=== PATIENT | male | born 1970 | race Caucasian/White ===

== ENCOUNTER 2017-02-16 12:59 | Day surgery (SDC) | payer OTHER ==
[~2017-02-16] VITALS: Ht 188 cm; Wt 101.0 kg
[~2017-02-16 12:59] MED LIST: CHOL3000 PO; FEXO180T72 PO; L. A1CAP3 PO; OXYC1TAB7 PO; TAMS0.4C2 PO
[2017-02-16 13:19] VITALS: BP 131/89
[2017-02-16] MEDS ORDERED: LACTATED RINGERS 1,000 ML IV SCH (13:23)
[2017-02-16] MEDS ORDERED: DEXAMETHASONE 4 MG/ML, 5ML ONE (13:47)
[2017-02-16] MEDS ORDERED: PROPOFOL 10 MG/ML, 20ML ONE (13:47)
[2017-02-16] MEDS ORDERED: CEFAZOLIN 1,000 MG ONE (13:47)
[2017-02-16] MEDS ORDERED: ONDANSETRON 2MG/ML, 2ML ONE (13:47)
[2017-02-16] MEDS ORDERED: KETOROLAC 30 MG/1 ML ONE (13:47)
[2017-02-16] MEDS ORDERED: OMNIPAQUE 350 MG/ML, 50 ML BOTTLE IV ONE (14:38)
[2017-02-16] MEDS ORDERED: OMNIPAQUE 350 MG/ML, 50 ML BOTTLE ONE (14:56)
[2017-02-16] MEDS ORDERED: ALBUTEROL SULFATE 2.5 MG/3 ML NPPB PRN (15:00)
[2017-02-16] MEDS ORDERED: MIDAZOLAM 1 MG/ML, 2ML IV PRN (15:00)
[2017-02-16] MEDS ORDERED: EPHEDRINE 50 MG/ML, 1ML IVPush PRN (15:00)
[2017-02-16] MEDS ORDERED: ONDANSETRON 2MG/ML, 2ML IVPush PRN (15:00)
[2017-02-16] MEDS ORDERED: LABETALOL 5MG/ML, 20ML IV PRN (15:00)
[2017-02-16] MEDS ORDERED: hydrALAzine 20 MG/ML, 1ML IV PRN (15:00)
[2017-02-16] MEDS ORDERED: PROMETHAZINE 25 MG/ML, 1ML IV PRN (15:00)
[2017-02-16] MEDS ORDERED: METOPROLOL 1 MG/ML, 5ML IV PRN (15:00)
[2017-02-16] MEDS ORDERED: HYDROmorphone 1 MG/ML, 1ML IV PRN (15:00)
[2017-02-16] MEDS ORDERED: ACETAMINOPHEN 325 MG TABLET PO PRN (15:00)
[2017-02-16] MEDS ORDERED: OXYcodone 5 MG/5 ML ORAL.SOL UDC PO PRN (15:00)
[2017-02-16] MEDS ORDERED: FENTANYL PF 100 MCG/2ML IV PRN (15:00)
[2017-02-16] MEDS ORDERED: MEPERIDINE/PF 25MG/0.5ML IVPush PRN (15:00)
[2017-02-16] MEDS ORDERED: MIDAZOLAM 1 MG/ML, 2ML ONE (15:11)
[2017-02-16] MEDS ORDERED: FENTANYL PF 250 MCG/5ML ONE (15:11)
[2017-02-16] MEDS ORDERED: ACETAMINOPHEN 650 MG/20.3 ML UDC ONE (15:21)
[2017-02-16] MEDS ORDERED: PHENAZOPYRIDINE 200 MG TABLET ONE (15:21)
[2017-02-16] MEDS ORDERED: OXYcodone 5 MG/5 ML ORAL.SOL UDC ONE (15:22)
[2017-02-16] MEDS ORDERED: PHENAZOPYRIDINE 200 MG TABLET PO ONE (15:30)
== END 2017-02-16 17:00 | disposition home or self-care (01) ==
LOC: OR 12:59
PROVIDERS: ATTEND Urology
DX: N20.1 Calculus of ureter (principal); Z88.3 Allergy status to other anti-infective agents; Z82.49 Family history of ischemic heart disease and other diseases of the circulatory system; Z84.1 Family history of disorders of kidney and ureter; M19.90 Unspecified osteoarthritis, unspecified site
CPT/HCPCS: 52356; 74420; 82360; 88300; C1758; C2617; J0690; J1100; J1885; J2250; J2405; J2704; J3010; Q9967

== ENCOUNTER 2019-04-22 10:06 | Inpatient (IN) | payer OTHER ==
[~2019-04-22] VITALS: Ht 188 cm; Wt 107.7 kg
--- NOTE | 2019-04-22 10:23 | NUR ---
FIRST CONTACT WITH PT. Pt presents to ED with c/o right flank pain and states, "I think I have a kidney stone. I have had them many times, I had lithotripsy three times." Pt denies cp, sob, n/v/d, trauma, or syncope. CMS intact. Pt states, "I took 10 mg of the last I had of oxycotin. So my pain is about an 8 or 9." ED PA at bedside. NADN. Bed rail up x 1, call light within reach. Pt connected to NIBP cuff and continous pulse ox. No other needs requested at this time.
[2019-04-22] MEDS ORDERED: SODIUM CHLORIDE FLUSH 10ML SYR IVF ONE (10:30)
--- NOTE | 2019-04-22 11:00 | NUR ---
Pt transported on [facility] to [facility]. HEAD.
[2019-04-22 11:02] LABS: BASOPHILS # (AUTO) 0.01 x10^3/uL (0-0.1); BASOPHILS % (AUTO) 0 % (0-1); EOSINOPHILS % (AUTO) 3 % (1-7); LYMPHOCYTES # (AUTO) 0.76 x10^3/uL (1-3.4); LYMPHOCYTES % (AUTO) 21 % (22-44); MD NO; MEAN CORPUSCULAR HEMOGLOBIN 30.1 pg (27.5-34.5); MEAN CORPUSCULAR VOLUME 91.2 fL (81-97); MEAN PLATELET VOLUME 8.3 fL (7.4-10.4); MONOCYTES # (AUTO) 0.45 x10^3/uL (0.2-0.8); MONOCYTES % (AUTO) 12 % (2-9); NEUTROPHILS # (AUTO) 2.34 x10^3/uL (1.8-6.8); NEUTROPHILS % (AUTO) 64 % (42-75); PLATELET COUNT 186 x10^3/uL (130-400); RED BLOOD COUNT 4.56 x10^6/uL (4.38-5.82)
--- NOTE | 2019-04-22 11:05 | NUR ---
BREAK RN: pt returned from CT, upright on gurney awake & comfortable, responded approp to staff, NAD, comfort measures provided, call light within reach.
[2019-04-22 11:12] LABS: ALBUMIN 3.8 g/dL (3.4-5.0); ANION GAP 3 mmol/L (5-15); CALCIUM 8.7 mg/dL (8.5-10.1); CHLORIDE 110 mmol/L (98-107); CREATININE 1.13 mg/dL (0.7-1.3)
[2019-04-22 11:40] LABS: MICROSCOPIC AUTO
[2019-04-22 11:41] LABS: CULTURE INDICATED? NO
--- NOTE | 2019-04-22 13:32 | NUR ---
LATE NOTE ENTRY FOR 1245: Pt resting on gurney. NADN. Pt declines any comfort measures for pain. Pt states, "I am doing okay right now." Pt connected to NIBP cuff and continous pulse ox. Call light within reach. No other needs expressed at this time.
--- NOTE | 2019-04-22 13:59 | NUR ---
SBAR RPT REC'D FROM [facility] AND ASSUMED PT CARE. PT RESTING ON GURNEY AND WATCHING TV. VSS NOTED. PT DENIES PAIN AT THIS TIME AND IS AWARE OF PLAN FOR SURGERY TODAY AT 1730. PT VERBALIZES UNDERSTANDING OF NPO STATUS. CALL LIGHT W/I REACH
[2019-04-22 14:37] VITALS: BP 121/69
[2019-04-22 14:45] VITALS: BP 121/69
[2019-04-22 15:03] VITALS: BP 121/69
[2019-04-22] MEDS ORDERED: D5%-0.45% NACL 1,000 ML IV SCH (15:50)
[2019-04-22] MEDS ORDERED: ZOLPIDEM 5MG TABLET PO PRN (16:00)
[2019-04-22] MEDS ORDERED: ONDANSETRON 2MG/ML, 2ML IVPush PRN (16:00)
[2019-04-22] MEDS ORDERED: CEFTRIAXONE PMX 1GM/50ML 50 ML IV SCH (16:00)
[2019-04-22] MEDS ORDERED: hydrALAzine 20 MG/ML, 1ML IVPush PRN (16:00)
[2019-04-22] MEDS ORDERED: OXYcodone IR 5MG TABLET PO PRN (16:00)
[2019-04-22] MEDS ORDERED: ACETAMINOPHEN 325 MG TABLET PO PRN ×2 (16:00→17:00)
[2019-04-22] MEDS ORDERED: morphine SULFATE 10 MG/ML, 1ML IVPush PRN (16:00)
[2019-04-22] MEDS ORDERED: MIDAZOLAM 1 MG/ML, 2ML ONE (16:56)
[2019-04-22] MEDS ORDERED: FENTANYL PF 250 MCG/5ML ONE (16:56)
[2019-04-22] MEDS ORDERED: ONDANSETRON 2MG/ML, 2ML IV PRN (17:00)
[2019-04-22] MEDS ORDERED: hydrALAzine 20 MG/ML, 1ML IV PRN (17:00)
[2019-04-22] MEDS ORDERED: OXYcodone 5 MG/5 ML ORAL.SOL UDC PO PRN (17:00)
[2019-04-22] MEDS ORDERED: MEPERIDINE/PF 25MG/0.5ML IVPush PRN (17:00)
[2019-04-22] MEDS ORDERED: PROMETHAZINE 25 MG/ML, 1ML IV PRN (17:00)
[2019-04-22] MEDS ORDERED: FENTANYL PF 100 MCG/2ML IV PRN (17:00)
[2019-04-22] MEDS ORDERED: HYDROmorphone 2 MG/ML, 1ML IVPush PRN (17:00)
[2019-04-22] MEDS ORDERED: LABETALOL 5 MG/ML SYRINGE IV PRN (17:00)
[2019-04-22] MEDS ORDERED: ONDANSETRON 2MG/ML, 2ML ONE (17:41)
[2019-04-22] MEDS ORDERED: DEXAMETHASONE 4 MG/ML, 1ML ONE ×2 (17:50→17:56)
[2019-04-22] MEDS ORDERED: SUCCINYLCHOLINE 20 MG/ML, 10ML ONE (17:51)
[2019-04-22] MEDS ORDERED: PROPOFOL 10 MG/ML, 20ML ONE (17:51)
[2019-04-22] MEDS ORDERED: KETOROLAC 30 MG/1 ML ONE (18:35)
[2019-04-22] MEDS ORDERED: OXYcodone 5 MG/5 ML ORAL.SOL UDC ONE (19:14)
[2019-04-22 19:51] VITALS: BP 123/75
[2019-04-22] MEDS ORDERED: TAMS-11 PO (20:07)
[2019-04-22] MEDS ORDERED: PHEN100T90 PO (20:08)
[2019-04-22] MEDS ORDERED: OXYC5TAB2 PO (20:13)
[2019-04-22] MEDS ORDERED: POLY17PO5 PO (20:15)
== END 2019-04-22 22:12 | disposition home or self-care (01) | DRG 661 ==
LOC: ED 11:46 → EDIP 13:51 → 4NOR 14:25
PROVIDERS: ADMIT Hospitalist; ATTEND Hospitalist
PROC: 0T768DZ Dilation of Right Ureter with Intraluminal Device, Via Natural or Artificial Opening Endoscopic (ICD-10-PCS; 2019-04-22)
PROC: 0TC68ZZ Extirpation of Matter from Right Ureter, Via Natural or Artificial Opening Endoscopic (ICD-10-PCS; principal; 2019-04-22 17:30)
DX: N13.2 Hydronephrosis with renal and ureteral calculous obstruction (principal); M19.90 Unspecified osteoarthritis, unspecified site; Z82.49 Family history of ischemic heart disease and other diseases of the circulatory system; Z83.3 Family history of diabetes mellitus; Z88.8 Allergy status to other drugs, medicaments and biological substances
CPT/HCPCS: 36415; 74176; 80048; 81001; 82040; 82360; 85025; 88300; G0378; J0696; J1100; J1885; J2250; J2405; J2704; J3010; C1758; C1769; C2617; J0330

== ENCOUNTER 2019-12-22 12:53 | Emergency (ER) | payer OTHER ==
[~2019-12-22] VITALS: Ht 188 cm; Wt 105.1 kg
[~2019-12-22 12:53] MED LIST changes: +OXYC5TAB2 PO; +PHEN100T90 PO; +POLY17PO5 PO; +TAMS-11 PO
--- NOTE | 2019-12-22 15:11 | NUR ---
BREAK RN: PT TO ROOM FROM LOBBY
--- NOTE | 2019-12-22 15:17 | NUR ---
THIS IS A 49 YEAR OLD MALE WHO C/O OF RIGHT FLANK PAIN. PT HAS HX OF KIDNEY STONES. EXPLAINED NEED FOR URINE, PT VERBALIZED UNDERSTANDING. WATER GIVEN
--- NOTE | 2019-12-22 15:47 | NUR ---
report from elida meehan at bedside, ua sent, plan for meds. as
[2019-12-22] MEDS ORDERED: KETOROLAC 60 MG/2 ML ONE (15:49)
[2019-12-22] MEDS ORDERED: ONDANSETRON ODT 4 MG PO ONE (16:00)
[2019-12-22] MEDS ORDERED: KETOROLAC 30 MG/1 ML IM ONE (16:00)
[2019-12-22] MEDS ORDERED: ONDANSETRON ODT 4 MG ONE (16:09)
[2019-12-22 16:21] LABS: MICROSCOPIC NOT IND
[2019-12-22 16:23] LABS: CULTURE INDICATED? NO
--- NOTE | 2019-12-22 17:19 | NUR ---
ct shows kidney stones. recheck. as
[2019-12-22 17:30] VITALS: BP 112/70
== END 2019-12-22 18:46 | disposition home or self-care (01) ==
LOC: ED 18:00
DX: N20.0 Calculus of kidney (principal); R10.9 Unspecified abdominal pain
CPT/HCPCS: 74176; 81003; 96372; 99284; J1885; Q0162

== ENCOUNTER 2021-06-06 22:12 | Emergency (ER) | payer OTHER ==
[~2021-06-06] VITALS: Ht 185.4 cm; Wt 100.0 kg
[2021-06-06 22:25] VITALS: BP 142/79
[2021-06-06 23:19] LABS: BASOPHILS % (AUTO) 0 % (0-1); EOSINOPHILS % (AUTO) 1 % (1-7); LYMPHOCYTES % (AUTO) 13 % (22-44); MEAN CORPUSCULAR HEMOGLOBIN 30.5 pg (27.5-34.5); MEAN PLATELET VOLUME 8.6 fL (7.4-10.4); MONOCYTES % (AUTO) 13 % (2-9); NEUTROPHILS % (AUTO) 73 % (42-75); PLATELET COUNT 183 x10^3/uL (130-400); RED BLOOD COUNT 4.35 x10^6/uL (4.38-5.82); RED CELL DISTRIBUTION WIDTH 13.9 % (9.4-14.8)
[2021-06-06 23:31] LABS: ALBUMIN 3.4 g/dL (3.4-5.0); ANION GAP 6 mmol/L (5-15); CALCIUM 9.1 mg/dL (8.5-10.1); CHLORIDE 106 mmol/L (98-107)
[2021-06-06 23:32] LABS: CREATININE 1.54 mg/dL (0.7-1.3)
[2021-06-07 00:04] LABS: MICROSCOPIC INDICATED
[2021-06-07] MEDS ORDERED: OXYcodone/APAP 5/325MG TABLET PO ONE (01:00)
[2021-06-07] MEDS ORDERED: KETOROLAC 30 MG/1 ML IM ONE (01:00)
[2021-06-07] MEDS ORDERED: KETOROLAC 60 MG/2 ML ONE (01:43)
[2021-06-07] MEDS ORDERED: OXYcodone/APAP 5/325MG TABLET ONE (01:43)
== END 2021-06-07 03:04 | disposition home or self-care (01) ==
LOC: ED 06-07 00:50
DX: N13.2 Hydronephrosis with renal and ureteral calculous obstruction (principal)
CPT/HCPCS: 36415; 74176; 76770; 80048; 81001; 82040; 85025; 96372; 99285; J1885

== ENCOUNTER → 2021-07-05 | Outpatient (CLI) | payer OTHER | END | disposition home or self-care (01) | LOC: RAD 08:12 | PROVIDERS: ATTEND Orthopaedic Surgery | DX: R60.9 Edema, unspecified (principal); M25.561 Pain in right knee ==